=== PATIENT | female | born 1995 | race Caucasian/White ===

== ENCOUNTER 2021-06-07 12:00 | Outpatient (CLI) | payer MEDICAID, SELFPAY | END 2021-06-07 12:01 | disposition home or self-care (01) | LOC: SLEEP 06-09 07:58 | PROVIDERS: Family Provider Family Medicine; Visit Provider Nurse Practitioner Family | DX: R06.83 Snoring (principal); R53.83 Other fatigue | CPT/HCPCS: G0399 ==

== ENCOUNTER 2024-07-22 13:39 | Outpatient (CLI) | payer MEDICAID, SELFPAY ==
--- NOTE | 2024-07-22 13:49 | MM_ITS ---
WS: [id number] BILATERAL 3D TOMOSYNTHESIS DIGITAL DIAGNOSTIC MAMMOGRAPHY WITH CAD CLINICAL INFORMATION: BREAST LUMP HISTORY: Diagnostic mammogram. LEFT breast lump COMPARISON: Baseline TECHNIQUE: Bilateral CC and ML, MLO views. FINDINGS: Scattered fibroglandular densities bilaterally. No suspicious focal mass, asymmetry, calcifications, or architectural distortion. No suspicious mammographic findings in the area of palpable marker ULTRASOUND BREAST LEFT TECHNIQUE: Ultrasound left breast focused area of concern. CLINICAL INFORMATION: BREAST LUMP FINDINGS: Ultrasound LEFT breast at the 12 o'clock position. No suspicious cystic or solid underlying lesions in the area of concern. No suspicious findings. Recommend annual screen mammography age 40 MM/MM diag BI tomosynthesis [id number] IMPRESSION: DENSITY: There are scattered areas of fibroglandular density. BI-RADS: 2 - Benign. FOLLOW UP: Age 38 Recommend return to annual screening mammography age 38
== END 2024-07-22 13:40 | disposition home or self-care (01) ==
LOC: RAD 13:40
PROVIDERS: Family Provider Family Medicine; PCP Nurse Practitioner; Visit Provider Nurse Practitioner Family
DX: N63.20 Unspecified lump in the left breast, unspecified quadrant (principal); R92.323 Mammographic fibroglandular density, bilateral breasts
CPT/HCPCS: 76642; 77062; G0279

== ENCOUNTER 2025-02-13 11:40 | Outpatient (CLI) | payer MEDICAID, SELFPAY | END 2025-02-13 11:41 | disposition home or self-care (01) | LOC: LAB 02-14 07:27 | PROVIDERS: Family Provider Family Medicine; PCP Nurse Practitioner; Visit Provider Internal Medicine | DX: E05.90 Thyrotoxicosis, unspecified without thyrotoxic crisis or storm (principal) | CPT/HCPCS: 36415; 83516; 84439; 84443; 86376; 86800 ==